=== PATIENT | male | born 1940 | race Caucasian/White ===

== ENCOUNTER 2017-01-29 12:58 | Emergency (ER) | payer MEDICARE ==
--- NOTE | 2017-01-29 13:41 | ER Document Report ---
ED Hip Pain/Injury - General Mode of Arrival: Medic Information source: Patient, Outside Facility Records Cannot obtain history due to: Dementia <VIKAS GUZMÁN - Last Filed: 01/29/17 14:53> <CHERYL GENTILE - Last Filed: 01/30/17 13:00> - General Stated Complaint: WEAKNESS Notes: Unable to obtain complete history of present illness due to patient's history of dementia. The patient is at his baseline dementia according to nursing staff. The patient was sent from the dementia unit after sliding out of his wheelchair to the ground. There was no loss of consciousness. No significant injuries. The patient has no complaints at this time. Further history of present illness is unobtainable due to the patient's current mental status. ( VIKAS GUZMÁN) Past Medical History - Social History Smoking Status: Unknown if Ever Smoked Family History: Reviewed & Not Pertinent <VIKAS GUZMÁN - Last Filed: 01/29/17 14:53> Review of Systems - Review of Systems -: Yes ROS unobtainable due to patient's medical condition <VIKAS GUZMÁN - Last Filed: 01/29/17 14:53> Physical Exam - General General appearance: Appears well, Alert - HEENT Head: Normocephalic Eyes: Normal Ears: Normal Pharynx: Normal Neck: Normal - Respiratory Respiratory status: No respiratory distress Breath sounds: Normal - Cardiovascular Rhythm: Regular Murmur: No - Abdominal Inspection: Normal Distension: No distension Tenderness: Nontender Organomegaly: No organomegaly - Back Back: Normal, Nontender - Extremities General upper extremity: Normal inspection, Nontender, Normal color, Normal ROM , Normal temperature General lower extremity: Normal inspection, Nontender, Normal color, Normal ROM , Normal temperature, Normal weight bearing. No: Herimnia's sign - Neurological Neuro grossly intact: Yes Cognition: Confused - History of dementia Speech: Normal Cranial nerves: Normal Motor strength normal: LUE, RUE, LLE, RLE - Psychological Associated symptoms: Normal affect, Normal mood - Skin Skin Temperature: Warm Skin Moisture: Dry Skin Color: Normal <VIKAS GUZMÁN - Last Filed: 01/29/17 14:53> <CHERYL GENTILE - Last Filed: 01/30/17 13:00> - Vital signs Vitals: Temp Pulse BP Pulse Ox 98.2 F 72 133/75 H 95 01/29/17 13:50 01/29/17 13:50 01/29/17 13:50 01/29/17 13:50 - General Notes: Confused, friendly, baseline (VIKAS GUZMÁN) Course - Diagnostic Test Radiology reviewed: Image reviewed, Reports reviewed - Negative hips <VIKAS GUZMÁN - Last Filed: 01/29/17 14:53> <CHERYL GENTILE - Last Filed: 01/30/17 13:00> - Vital Signs Vital signs: Temp Pulse Resp BP Pulse Ox 98.1 F 79 16 132/76 H 98 01/29/17 18:09 01/29/17 18:09 01/29/17 18:09 01/29/17 18:09 01/29/17 18:09 Patient is nontoxic appearing with stable vitals. The patient arrives after sliding out of his wheelchair to the ground. The patient has dementia and has no recollection of this injury. He has initially no complaints at this time. His exam is completely benign. X-rays of his hip and pelvis show no acute abnormality. The patient will be discharged back to his halfway. Follow- up for any other complaints or further concerns. 01/29/17 14:54 (VIKAS GUZMÁN) Discharge <VIKAS GUZMÁN - Last Filed: 01/29/17 14:53> <CHERYL GENTILE - Last Filed: 01/30/17 13:00> - Discharge Clinical Impression: Fall Qualifiers: Encounter type: initial encounter Qualified Code(s): W19.XXXA - Unspecified fall, initial encounter Disposition: HOME-SNF (ED ONLY) Additional Instructions: X-rays of the pelvis were normal today. Follow-up for any complaints, fever, change in mentation or any further concerns. Cosign for MLP Consult - Cosign -: I was personally available for consultation in the Emergency Department and serving as supervising physician for the MLP. Cosign for MLP: Manfred <CHERYL GENTILE - Last Filed: 01/30/17 13:00>
[2017-01-29 19:03] VITALS: BP 133/75
== END 2017-01-29 18:40 ==
LOC: ER 12:58
DX: Z04.3 Encounter for examination and observation following other accident (principal); F03.90 Unspecified dementia, unspecified severity, without behavioral disturbance, psychotic disturbance, mood disturbance, and anxiety
CPT/HCPCS: 73522; 99285

== ENCOUNTER 2017-02-15 23:30 | Emergency (ER) | payer MEDICARE ==
--- NOTE | 2017-02-15 23:55 | ER Document Report ---
ED General - General Chief Complaint: Low Blood Sugar Stated Complaint: BLOOD SUGAR CONCERNS Time seen by provider: 23:45 Notes: Patient is a 77-year-old male that comes emergency department from the [facility] by EMS for chief complaint of elevated blood glucose readings in the 400s and 500s today. They also state patient has been having a fever, they do not give him numbers for this, EMS initial temperature was 99.4. Patient is nonverbal at baseline, no cough, vomiting, diarrhea, or other abnormalities reported. No other history given at this time. Past Medical History - General Information source: Emergency Med Personnel - Social History Smoking Status: Never Smoker Frequency of alcohol use: None Drug Abuse: None Lives with: Custodial Family History: Reviewed & Not Pertinent - Past Medical History Cardiac Medical History: Reports: Hx Hypercholesterolemia Endocrine Medical History: Reports: Hx Diabetes Mellitus Type 2 - Immunizations Hx Diphtheria, Pertussis, Tetanus Vaccination: - unable to obtain Review of Systems - Review of Systems Constitutional: See HPI EENT: No symptoms reported Cardiovascular: See HPI Respiratory: No symptoms reported Gastrointestinal: No symptoms reported Genitourinary: No symptoms reported Male Genitourinary: No symptoms reported Musculoskeletal: No symptoms reported Skin: No symptoms reported Hematologic/Lymphatic: No symptoms reported Neurological/Psychological: No symptoms reported Physical Exam - Vital signs Vitals: Temp Pulse Resp BP Pulse Ox 98.1 F 72 16 113/50 L 95 02/15/17 23:43 02/15/17 23:43 02/15/17 23:43 02/15/17 23:43 02/15/17 23:43 Interpretation: Normal - General General appearance: Appears well, Alert In distress: None - Patient resting and appears to be comfortable - HEENT Head: Normocephalic, Atraumatic Eyes: Normal Conjunctiva: Normal Extraocular movements intact: Yes Eyelashes: Normal Pupils: PERRL Mouth/Lips: Normal Mucous membranes: Dry - Very dry tongue and lips Pharynx: Normal Neck: Normal - Respiratory Respiratory status: No respiratory distress Chest status: Nontender Breath sounds: Normal. No: Decreased air movement, Wheezing Chest palpation: Normal - Cardiovascular Rhythm: Regular. No: Tachycardia Heart sounds: Normal auscultation, S1 appreciated, S2 appreciated Murmur: No - Abdominal Inspection: Normal Distension: No distension Bowel sounds: Normal Tenderness: Nontender. No: Tender, Guarding Organomegaly: No organomegaly - Back Back: Normal, Nontender - Extremities General upper extremity: Normal inspection, Nontender, Normal color, Normal ROM , Normal temperature General lower extremity: Normal inspection, Nontender, Normal color, Normal ROM , Normal temperature, Normal weight bearing. No: Herminia's sign - Neurological [place] Coma Scale Eye Opening: Spontaneous [place] Coma Scale Motor: Obeys Commands Motor strength normal: LUE, RUE, LLE, RLE Sensory: Normal - Skin Skin Temperature: Warm Skin Moisture: Dry Skin Color: Normal Course - Re-evaluation Re-evalutation: Patient with a soft abdomen, he will follow directions but is nonverbal. Clear lungs, no cough, no tachypnea, he appears to be comfortable. No tachycardia, hypotension, or fever on rechecks. No leukocytosis, chest x-ray and urinalysis are unremarkable. No evidence of infection, no reported recorded fevers. Blood cultures pending. Unsure patient's kidney status, creatinine is 1.6. Urinalysis shows elevated specific gravity and ketones consistent with dehydration. Glucose in the 300s, bicarbonate and anion gap are normal, venous blood gas is normal, no evidence or concern for acidosis. Patient given IV fluids, on reevaluation there is still hyperglycemia, patient given insulin, after downtrending his glucose [facility] having been re[facility]. Patient is already on sliding insulin scale and by mouth meds for diabetes. - Vital Signs Vital signs: Temp Pulse Resp BP Pulse Ox 97.7 F 72 13 115/52 L 97 02/16/17 05:29 02/15/17 23:43 02/16/17 04:01 02/16/17 04:01 02/16/17 04:01 - Laboratory Result Diagrams: 02/16/17 00:29 02/16/17 00:29 Laboratory results interpreted by me: 02/16/17 02/16/17 02/16/17 00:29 00:29 01:50 RBC 3.77 L Hgb 12.5 L Hct 36.7 L RDW 14.1 H Plt Count 113 L Sodium 151.3 H Chloride 111 H BUN 45 H Creatinine 1.67 H Est GFR ( Amer) 48 L Est GFR (Non-Af Amer) 40 L Glucose 355 H POC Glucose Total Protein 5.7 L Albumin 3.4 L Urine Glucose (UA) >=500 H Urine Ketones 20 H Urine Blood SMALL H 02/16/17 02/16/17 04:31 05:59 RBC Hgb Hct RDW Plt Count Sodium Chloride BUN Creatinine Est GFR ( Amer) Est GFR (Non-Af Amer) Glucose POC Glucose 370 H 327 H Total Protein Albumin Urine Glucose (UA) Urine Ketones Urine Blood Discharge - Discharge Clinical Impression: Hyperglycemia, Dehydration Additional Instructions: No evidence of infection on examination and workup. No fevers. Workup does not show metabolic acidosis. Patient has been treated for dehydration. Continue sliding scale and diabetic medications. Follow-up with primary care. Return the emergency department for any concerning symptoms including fever of 100.4 or greater, vomiting, altered mental status, or any other concerning symptoms.
[2017-02-16 01:09] LABS: ABSOLUTE LYMPHOCYTES (AUTO) 1.1 10^3/uL (0.5-4.7); ABSOLUTE MONOCYTES (AUTO) 0.4 10^3/uL (0.1-1.4); ABSOLUTE NEUT (AUTO) 2.9 10^3/uL (1.7-8.2); BASOPHILS % (AUTO) 0.4 % (0-2); EOSINOPHILS % (AUTO) 0.2 % (0-6); HEMATOCRIT 36.7 % (37.9-51.0); HEMOGLOBIN 12.5 g/dL (13.5-17.0); HGB HCT DIFFERENCE 0.8; LYMPHOCYTES % (AUTO) 24.1 % (13-45); MEAN CORPUSCULAR HEMOGLOBIN 33.3 pg (27.0-33.4); MEAN CORPUSCULAR HGB CONC 34.2 g/dL (32.0-36.0); MEAN CORPUSCULAR VOLUME 97 fl (80-97); MONOCYTES % (AUTO) 9.4 % (3-13); RED BLOOD COUNT 3.77 10^6/uL (4.35-5.55); RED CELL DISTRIBUTION WIDTH 14.1 % (11.5-14.0); SEGMENTED NEUTROPHILS % (AUTO) 65.9 % (42-78); WHITE BLOOD COUNT 4.4 10^3/uL (4.0-10.5)
[2017-02-16 01:29] LABS: ALANINE AMINOTRANSFERASE 30 U/L (21-72); ALBUMIN 3.4 g/dL (3.5-5.0); ALKALINE PHOSPHATASE 96 U/L (38-126); ANION GAP 13 (5-19); ASPARTATE AMINO TRANSFERASE 30 U/L (17-59); BILIRUBIN,DIRECT 0.3 mg/dL (0.0-0.4); BILIRUBIN,TOTAL 0.7 mg/dL (0.2-1.3); BLOOD UREA NITROGEN 45 mg/dL (7-20); CALCIUM 9.6 mg/dL (8.4-10.2); CARBON DIOXIDE 27 mmol/L (22-30); CHLORIDE 111 mmol/L (98-107); CREATININE RESULT 1.67 mg/dL (0.52-1.25); GLUCOSE 355 mg/dL (75-110); SODIUM 151.3 mmol/L (137-145); TOTAL PROTEIN 5.7 g/dL (6.3-8.2)
[2017-02-16 02:06] LABS: VENOUS BLOOD BASE EXCESS 2.1 mmol/L; VENOUS BLOOD HCO3 27.9 mmol/L (20-32); VENOUS BLOOD PCO2 48.2 mmHg (35-63); VENOUS BLOOD PH 7.38 (7.30-7.42)
[2017-02-16 02:17] LABS: APPEARANCE,URINE CLEAR; BILIRUBIN,URINE NEGATIVE (NEGATIVE); GLUCOSE, URINE >=500 mg/dL (NEGATIVE); KETONES,URINE 20 mg/dL (NEGATIVE); LEUKOCYTE ESTERASE,URINE NEGATIVE (NEGATIVE); NITRITE,URINE NEGATIVE (NEGATIVE); PROTEIN,URINE NEGATIVE (NEGATIVE); URINE SPECIFIC GRAVITY 1.032; UROBILINOGEN,URINE NEGATIVE mg/dL (<2.0)
[2017-02-16] MEDS ORDERED: NORMAL SALINE 1000 ML 1,000 ML IV ONE (02:24)
[2017-02-16] MEDS ORDERED: NORMAL SALINE 1000 ML 500 ML IV ONE (02:25)
[2017-02-16] MEDS ORDERED: INSULIN REG, HUMAN 100 UNIT/ML 3 ML VIAL (PYX) SUBCUT ONE (04:32)
[2017-02-16 08:32] VITALS: BP 103/55
== END 2017-02-16 08:33 | disposition home health service (06) ==
LOC: ER 23:30
DX: E11.65 Type 2 diabetes mellitus with hyperglycemia (principal); Z79.84 Long term (current) use of oral hypoglycemic drugs; Z79.4 Long term (current) use of insulin; E86.0 Dehydration
CPT/HCPCS: 99285; 96360; 96361; 51701; 36415; 87040; 82962; 85025; 80053; 81001; 82803; 71010; A9270; J7030; J1815

== ENCOUNTER 2017-03-02 13:58 | Emergency (ER) | payer MEDICARE ==
--- NOTE | 2017-03-02 14:15 | ER Document Report ---
ED General - General Chief Complaint: Fever Stated Complaint: WEAKNESS Mode of Arrival: Medic Information source: Relative, Emergency Med Personnel, Outside Facility Records Cannot obtain history due to: Dementia TRAVEL OUTSIDE OF THE [place] IN LAST 30 DAYS: No - HPI Onset: This morning - ABOUT NOON Onset/Duration: Gradual Quality of pain: No pain Associated symptoms: Weakness. denies: Nonproductive cough, Vomiting, Sweating Exacerbated by: Denies Relieved by: Denies Similar symptoms previously: No - UNKNOWN Recently seen / treated by doctor: No - UNKNOWN Notes: Spouse says patient had a "fever" of 99 at [facility], was given Tylenol. - Related Data Allergies/Adverse Reactions: No Known Allergies Allergy (Verified 03/02/17 14:19) Past Medical History - General Information source: Transfer Record - Social History Smoking Status: Unknown if Ever Smoked Lives with: Family Family History: Reviewed & Not Pertinent - Past Medical History Cardiac Medical History: Reports: Hx Hypercholesterolemia Endocrine Medical History: Reports: Hx Diabetes Mellitus Type 1, Hx Diabetes Mellitus Type 2 - Immunizations Hx Diphtheria, Pertussis, Tetanus Vaccination: - unable to obtain Review of Systems - Review of Systems -: Yes ROS unobtainable due to patient's medical condition Physical Exam - Vital signs Vitals: Temp Pulse Resp BP Pulse Ox 98.2 F 76 18 112/47 L 95 03/02/17 14:00 03/02/17 14:00 03/02/17 14:00 03/02/17 14:00 03/02/17 14:00 Interpretation: Normal. No: Tachycardic, Hypoxic, Tachypneic, Febrile - General General appearance: Lethargic - RESPONDS TO SHOUTED VOICE BY OPENING EYES BRIEFLY - HEENT Head: Normocephalic Eyes: Normal Conjunctiva: Normal Pupils: PERRL Ears: Normal Nasal: Normal Mouth/Lips: Normal Mucous membranes: Normal Neck: Normal, Supple - Respiratory Respiratory status: No respiratory distress Breath sounds: Normal - Cardiovascular Rhythm: Regular Heart sounds: Normal auscultation Murmur: No - Abdominal Inspection: Normal Distension: No distension Bowel sounds: Hypoactive - Extremities General upper extremity: Normal inspection General lower extremity: Normal inspection - Neurological Neuro grossly intact: No - UNCOOPERATIVE - Skin Skin Temperature: Warm Skin Moisture: Dry Skin Color: Normal Skin Turgor: Elastic Course - Re-evaluation Re-evalutation: 03/02/17 19:08 Discussed patient's presentation and results of ED workup with patient's spouse. She is able to provide little additional history. Diagnosis, prognosis , and planned course of treatment discussed with spouse, and she verbalizes understanding. - Vital Signs Vital signs: Temp Pulse Resp BP Pulse Ox 98.4 F 90 16 110/70 90 L 03/02/17 20:12 03/02/17 20:52 03/02/17 20:52 03/02/17 20:52 03/02/17 20:52 - Laboratory Result Diagrams: 03/02/17 16:20 03/02/17 16:20 Laboratory results interpreted by me: 03/02/17 03/02/17 03/02/17 16:20 16:20 16:55 RBC 4.25 L MCV 98 H RDW 14.8 H Plt Count 106 L Sodium 149.8 H Carbon Dioxide 31 H BUN 25 H Glucose 123 H Urine Protein 100 H Urine Glucose (UA) 150 H Urine Ketones TRACE H Urine Blood SMALL H Urine Urobilinogen 4.0 H Discharge - Discharge Clinical Impression: Viral illness, Dehydration Condition: Stable Disposition: HOME-ASSISTED LIVING Instructions: Viral Syndrome ([facility]), Acetaminophen Additional Instructions: CONTINUE USUAL CARE, DIET, AND MEDS. YOU MAY USE TYLENOL IF NEEDED FOR FEVER OR PAIN CONTROL. FOLLOW UP WITH YOUR PRIMARY CARE PROVIDER OR RETURN TO E.R. IF PROBLEMS.
[2017-03-02 16:41] LABS: ABSOLUTE LYMPHOCYTES (AUTO) 0.9 10^3/uL (0.5-4.7); ABSOLUTE MONOCYTES (AUTO) 0.5 10^3/uL (0.1-1.4); ABSOLUTE NEUT (AUTO) 3.1 10^3/uL (1.7-8.2); BASOPHILS % (AUTO) 0.5 % (0-2); EOSINOPHILS % (AUTO) 0.4 % (0-6); HEMATOCRIT 41.5 % (37.9-51.0); HEMOGLOBIN 13.7 g/dL (13.5-17.0); HGB HCT DIFFERENCE -0.4; LYMPHOCYTES % (AUTO) 20.6 % (13-45); MEAN CORPUSCULAR HEMOGLOBIN 32.3 pg (27.0-33.4); MEAN CORPUSCULAR HGB CONC 33.1 g/dL (32.0-36.0); MEAN CORPUSCULAR VOLUME 98 fl (80-97); MONOCYTES % (AUTO) 10.6 % (3-13); RED BLOOD COUNT 4.25 10^6/uL (4.35-5.55); RED CELL DISTRIBUTION WIDTH 14.8 % (11.5-14.0); SEGMENTED NEUTROPHILS % (AUTO) 67.9 % (42-78); WHITE BLOOD COUNT 4.6 10^3/uL (4.0-10.5)
[2017-03-02 17:07] LABS: ALBUMIN 3.7 g/dL (3.5-5.0); ANION GAP 13 (5-19); ASPARTATE AMINO TRANSFERASE 33 U/L (17-59); BLOOD UREA NITROGEN 25 mg/dL (7-20); CALCIUM 9.5 mg/dL (8.4-10.2); CARBON DIOXIDE 31 mmol/L (22-30); CHLORIDE 106 mmol/L (98-107); CREATININE RESULT 1.08 mg/dL (0.52-1.25); GLUCOSE 123 mg/dL (75-110); POTASSIUM 3.6 mmol/L (3.6-5.0); SODIUM 149.8 mmol/L (137-145)
[2017-03-02 17:08] LABS: ALANINE AMINOTRANSFERASE 34 U/L (21-72); ALKALINE PHOSPHATASE 108 U/L (38-126); BILIRUBIN,DIRECT 0.3 mg/dL (0.0-0.4); BILIRUBIN,TOTAL 0.8 mg/dL (0.2-1.3); TOTAL PROTEIN 6.5 g/dL (6.3-8.2)
[2017-03-02 17:16] LABS: APPEARANCE,URINE SLIGHTLY-CLOUDY; BILIRUBIN,URINE NEGATIVE (NEGATIVE); GLUCOSE, URINE 150 mg/dL (NEGATIVE); KETONES,URINE TRACE mg/dL (NEGATIVE); LEUKOCYTE ESTERASE,URINE NEGATIVE (NEGATIVE); NITRITE,URINE NEGATIVE (NEGATIVE); PROTEIN,URINE 100 mg/dL (NEGATIVE)
[2017-03-02] MEDS ORDERED: NORMAL SALINE 1000 ML 1,000 ML IV ONE (17:47)
[2017-03-02 18:28] LABS: URINE BARBITURATES SCREEN NEGATIVE; URINE METHADONE SCREEN NEGATIVE; URINE OPIATES LOW NEGATIVE; URINE PHENCYCLIDINE SCREEN NEGATIVE
[2017-03-02 20:54] VITALS: BP 110/70
== END 2017-03-02 20:50 | disposition home health service (06) ==
LOC: ER 13:58
DX: E86.0 Dehydration (principal); B34.9 Viral infection, unspecified; R50.9 Fever, unspecified; R53.1 Weakness; E78.00 Pure hypercholesterolemia, unspecified; E11.9 Type 2 diabetes mellitus without complications
CPT/HCPCS: 99285; 96360; 36415; 87040; 85025; 80053; 81001; 80307; 71010; 70450; J7030

== ENCOUNTER 2017-03-26 06:07 | Inpatient (IN) | payer MEDICARE ==
--- NOTE | 2017-03-26 06:33 | ER Document Report ---
ED General - General Mode of Arrival: Medic Information source: Emergency Med Personnel, [facility] Records Cannot obtain history due to: Dementia TRAVEL OUTSIDE OF THE [place] IN LAST 30 DAYS: No - HPI Patient complains to provider of: Possible Seizure Onset: This morning Associated symptoms: Other - see notes above <SILVIA JAVED - Last Filed: 03/26/17 11:21> <YANNICK YARBROUGH - Last Filed: 03/26/17 13:54> - General Chief Complaint: Probable Seizure Stated Complaint: PROBABLE SEIZURE Time Seen by Provider: 03/26/17 06:25 Notes: 77 year old male with history of Alzheimer's presents to the ED via EMS after having a possible seizure while eating at [facility] earlier this morning. EMS reports the patient's blood pressure was in the low 60s/30s. A comprehensive HPI is unobtainable secondary to the patient's status. (SILVIA JAVED) - Related Data Allergies/Adverse Reactions: No Known Allergies Allergy (Verified 03/02/17 14:19) Home Medications: Current Home Medications Acetaminophen [Tylenol 325 mg Tablet] 650 mg PO Q4HP PRN 03/26/17 [History] Acetaminophen [Tylenol 325 mg Tablet] 650 mg PO Q6HP PRN 03/26/17 [History] Aspirin [Ecotrin 325 mg EC Tablet] 325 mg PO DAILY 03/26/17 [History] Cold Cream/Zinc Oxide/Star/Soren [Dermacloud Ointment] 1 applic TP PRN PRN [History] Divalproex Sodium [Divalproex Sodium ER] 500 mg PO Q12 03/26/17 [History] Glimepiride [Amaryl 4 mg Tablet] 4 mg PO Q6AM 03/26/17 [History] Guaifenesin [Robafen] 200 mg PO Q4HP PRN 03/26/17 [History] Insulin Glargine,Hum.rec.anlog [Lantus Insulin 100 Unit/mL] 25 unit SQ QHS 03/26 [History] Insulin Lispro [Humalog Kwikpen U-100] 0 unit SQ ASDIR PRN 03/26/17 [History] Losartan Potassium [Cozaar 50 mg Tablet] 50 mg PO DAILY 03/26/17 [History] Magnesium Hydroxide [Milk of Magnesia] 30 ml PO DAILYP PRN 03/26/17 [History] Mirtazapine [Remeron] 30 mg PO QHS 03/26/17 [History] Multivitamin/Iron/Folic Acid [Centrum Complete Multivit Tab] 1 tab PO DAILY [History] Neomycin Perez/Bacitrac Zn/Poly [Triple Antibiotic Ointment] 1 applic TP PRN PRN [History] Pioglitazone HCl [Actos] 45 mg PO DAILY 03/26/17 [History] Polyethylene Glycol 3350 [Miralax Powder 17 gm/Packet] 17 gm PO DAILYP PRN 03/26 [History] Sertraline HCl [Zoloft 50 mg Tablet] 50 mg PO DAILY 03/26/17 [History] Trazodone HCl [Desyrel 50 mg Tablet] 50 mg PO QHS 03/26/17 [History] Past Medical History - General Information source: Emergency Med Personnel, [facility] Records Cannot obtain history due to: Dementia - Social History Smoking Status: Unknown if Ever Smoked Family History: Reviewed & Not Pertinent - Past Medical History Cardiac Medical History: Reports: Hx Hypercholesterolemia Neurological Medical History: Reports: Other - Alzheimer's Endocrine Medical History: Reports: Hx Diabetes Mellitus Type 1, Hx Diabetes Mellitus Type 2 Renal/ Medical History: Denies: Hx Peritoneal Dialysis Psychiatric Medical History: Reports: Hx Dementia - Immunizations Hx Diphtheria, Pertussis, Tetanus Vaccination: - unable to obtain <SILVIA JAEVD - Last Filed: 03/26/17 11:21> Review of Systems - Review of Systems -: Yes ROS unobtainable due to patient's medical condition <SILVIA JAVED - Last Filed: 03/26/17 11:21> Physical Exam - General General appearance: Alert - eyes are open In distress: None - HEENT Head: Normocephalic, Atraumatic Eyes: Normal Extraocular movements intact: Yes Pupils: PERRL - Respiratory Respiratory status: No respiratory distress Breath sounds: Normal - Cardiovascular Rhythm: Regular Heart sounds: Normal auscultation - Abdominal Inspection: Normal Distension: No distension Tenderness: Nontender - Back Back: Normal - Extremities General upper extremity: Normal inspection, Normal ROM General lower extremity: Normal inspection, Normal ROM - Neurological Neuro grossly intact: Yes Cognition: Normal Orientation: AAOx4 [place] Coma Scale Eye Opening: Spontaneous Vandana Coma Scale Verbal: Oriented [place] Coma Scale Motor: Obeys Commands [place] Coma Scale Total: 15 Speech: Normal - Skin Skin Temperature: Warm Skin Moisture: Dry Skin Color: Normal <SILVIA JAVED - Last Filed: 03/26/17 11:21> <YANNICK YARBROUGH - Last Filed: 03/26/17 13:54> - Vital signs Vitals: Resp Pulse Ox 16 93 03/26/17 06:16 03/26/17 06:16 Course - Laboratory Result Diagrams: 03/26/17 06:25 03/26/17 06:25 - Consults Dr. Arellano Time consulted: 10:50 <SILVIA JAVED - Last Filed: 03/26/17 11:21> - Laboratory Result Diagrams: 03/26/17 06:25 03/26/17 06:25 <YANNICK YARBROUGH - Last Filed: 03/26/17 13:54> - Re-evaluation Re-evalutation: 03/26/17 10:53 EMS [facility] to [facility] for seizure versus questionable syncopal event at breakfast this morning patient unable to give a history due to severe dementia. Uncertain as to whether he thought he aspirated. Blood pressure obtained by EMS was initially in the 60s on ED arrival he is in the 100s and 1 teens. He was alert and follows commands but noncommunicable. His lungs are clear he is in no severe respiratory distress. He has does have pneumonia on the chest x-ray and a large urinary tract infection for which I gave him thank and Zosyn. Spoke with the inpatient hospitalist is to admit the patient to the hospital for further assessment. (YANNICK YARBROUGH) - Vital Signs Vital signs: Temp Pulse Resp BP Pulse Ox 97.6 F 100 22 H 107/72 90 L 03/26/17 13:33 03/26/17 12:25 03/26/17 12:53 03/26/17 11:15 03/26/17 12:54 - Laboratory Laboratory results interpreted by me: 03/26/17 03/26/17 03/26/17 06:25 06:25 08:45 RBC 3.74 L Hgb 12.4 L Hct 36.8 L MCV 98 H RDW 14.8 H Metamyelocytes % 1 H BUN 23 H Creatinine 1.26 H Est GFR (Non-Af Amer) 55 L Glucose 146 H Total Protein 5.4 L Albumin 3.2 L Urine Protein 100 H Urine Glucose (UA) 50 H Urine Blood MODERATE H Ur Leukocyte Esterase LARGE H Urine Ascorbic Acid 20 H Valproic Acid 28.1 L - Consults Dr. Arellano Reason for consultation: 03/26/17 10:50 Patient was discussed with Dr. Arellano and he agrees to admit the patient and see him at bedside. (SILVIA JAVED) Critical Care Note - Critical Care Note Total time excluding time spent on procedures (mins): 45 <YANNICK YARBROUGH - Last Filed: 03/26/17 13:54> Discharge <SILVIA JAVED - Last Filed: 03/26/17 11:21> - Discharge Admitting Provider: Hospitalist Unit Admitted: Medical Floor <YANNICK YARBROUGH - Last Filed: 03/26/17 13:54> - Discharge Clinical Impression: acute pneumonia with hypoxia, acute uti Condition: Stable Disposition: ADMITTED INPATIENT Scribe Attestation: 03/26/17 10:54 I personally performed the services described in the documentation reviewed the documentation recorded by my scribe in my presence and it accurately and completely records my words and actions (YANNICK YARBROUGH) Scribe Documentation - Scribe Written by Scribe:: Dru Colindres, 03/26/2017 0731 acting as scribe for :: Florencio <SILVIA JAVED - Last Filed: 03/26/17 11:21>
[2017-03-26 06:54] LABS: ALANINE AMINOTRANSFERASE 39 U/L (21-72); ALBUMIN 3.2 g/dL (3.5-5.0); ALKALINE PHOSPHATASE 70 U/L (38-126); ANION GAP 12 (5-19); ASPARTATE AMINO TRANSFERASE 26 U/L (17-59); BILIRUBIN,DIRECT 0.1 mg/dL (0.0-0.4); BILIRUBIN,TOTAL 0.4 mg/dL (0.2-1.3); BLOOD UREA NITROGEN 23 mg/dL (7-20); CALCIUM 9.1 mg/dL (8.4-10.2); CARBON DIOXIDE 27 mmol/L (22-30); CHLORIDE 104 mmol/L (98-107); CREATININE RESULT 1.26 mg/dL (0.52-1.25); GLUCOSE 146 mg/dL (75-110); POTASSIUM 4.6 mmol/L (3.6-5.0); SODIUM 143.1 mmol/L (137-145); TOTAL PROTEIN 5.4 g/dL (6.3-8.2)
[2017-03-26 07:00] LABS: VALPROIC ACID 28.1 ug/mL (50.0-120.0)
[2017-03-26 07:04] LABS: HEMATOCRIT 36.8 % (37.9-51.0); HEMOGLOBIN 12.4 g/dL (13.5-17.0); HGB HCT DIFFERENCE 0.4; MEAN CORPUSCULAR HEMOGLOBIN 33.2 pg (27.0-33.4); MEAN CORPUSCULAR HGB CONC 33.7 g/dL (32.0-36.0); MEAN CORPUSCULAR VOLUME 98 fl (80-97); RED BLOOD COUNT 3.74 10^6/uL (4.35-5.55); RED CELL DISTRIBUTION WIDTH 14.8 % (11.5-14.0); WHITE BLOOD COUNT 4.9 10^3/uL (4.0-10.5)
[2017-03-26 07:20] LABS: BAND NEUTROPHILS % (MANUAL) 3 % (3-5); BASOPHILS % (MANUAL) 0 % (0-2); EOSINOPHILS % (MANUAL) 0 % (0-6); LYMPHOCYTES % (MANUAL) 30 % (13-45); TOTAL CELLS COUNTED 100
[2017-03-26 07:24] LABS: ANISOCYTOSIS SLIGHT; OVALOCYTES SLIGHT; POIKILOCYTOSIS SLIGHT
--- NOTE | 2017-03-26 08:37 | RADIOLOGY REPORT (SQ) ---
EXAM DESCRIPTION: CHEST SINGLE VIEW COMPLETED DATE/TIME: 03/26/2017 8:28 am REASON FOR STUDY: seizure syncope COMPARISON: 03/02/2017 EXAM PARAMETERS: NUMBER OF VIEWS: One view. TECHNIQUE: Single frontal radiographic view of the chest acquired. RADIATION DOSE: NA LIMITATIONS: None. FINDINGS: LUNGS AND PLEURA: New right lower lobe airspace disease. Lungs and pleural spaces otherwi se grossly clear. MEDIASTINUM AND HILAR STRUCTURES: No masses. Contour normal. HEART AND VASCULAR STRUCTURES: Heart stable in size. Normal vasculature. BONES: No acute findings. HARDWARE: None in the chest. OTHER: No other significant finding. IMPRESSION: NEW RIGHT LOWER LOBE AIRSPACE DISEASE MAY REPRESENT SUBSEGMENTAL ATELECTASIS, ASPIRATION , OR DEVELOPING PNEUMONIA. TECHNICAL DOCUMENTATION: JOB ID: [id number]
--- NOTE | 2017-03-26 08:37 | RADIOLOGY REPORT (SQ) ---
EXAM DESCRIPTION: CT HEAD WITHOUT COMPLETED DATE/TIME: 03/26/2017 8:25 am REASON FOR STUDY: seizure syncope COMPARISON: 03/02/2017 TECHNIQUE: Axial images acquired through the brain without intravenous contrast. Images reviewed wi th bone, brain and subdural windows. Images stored on PACS. All CT scanners at this facility use dose modulation, iterative reconstruction, and/or weight based d osing when appropriate to reduce radiation dose to as low as reasonably achievable (ALARA). [facility]: Dose Right [facility]: CareDose [facility]: Dose Right [facility]: Teradose 4D [facility]: Adify RADIATION DOSE: 64.61mGy. LIMITATIONS: None. FINDINGS: VENTRICLES: Prominent. CEREBRUM: No masses. No hemorrhage. No midline shift. Areas of low density in the white matter mos t likely due to chronic micro-vascular ischemic change. No evidence for acute infarction. CEREBELLUM: No masses. No hemorrhage. No alteration of density. No evidence for acute infarction. EXTRAAXIAL SPACES: Age-related involutional change. No fluid collections. No masses. ORBITS AND GLOBE: No intra- or extraconal masses. Normal contour of globe without masses. CALVARIUM: No fracture. PARANASAL SINUSES: Right frontal sinus disease. Tiny mucous retention cyst versus polyp left maxilla ry sinus. No air-fluid levels. SOFT TISSUES: No mass or hematoma. OTHER: No other significant finding. IMPRESSION: NO ACUTE INTRACRANIAL PROCESS. NO SIGNIFICANT CHANGE FROM PRIOR STUDY. TECHNICAL DOCUMENTATION: JOB ID: [id number] Quality ID # [id number]: Final reports with documentation of one or more dose reduction techniques (e.g., Au tomated exposure control, adjustment of the mA and/or kV according to patient size, use of iterative reconstruction technique) 2010 [employer]- All Rights Reserved
[2017-03-26 09:03] LABS: APPEARANCE,URINE CLOUDY; BILIRUBIN,URINE NEGATIVE (NEGATIVE); GLUCOSE, URINE 50 mg/dL (NEGATIVE); KETONES,URINE NEGATIVE (NEGATIVE); LEUKOCYTE ESTERASE,URINE LARGE (NEGATIVE); NITRITE,URINE NEGATIVE (NEGATIVE); PROTEIN,URINE 100 mg/dL (NEGATIVE); URINE SPECIFIC GRAVITY 1.014; UROBILINOGEN,URINE NEGATIVE mg/dL (<2.0)
[2017-03-26] MEDS ORDERED: PIPERACILLIN/TAZOBACTAM 3.375 GM VIAL IV ONE (10:48)
[2017-03-26] MEDS ORDERED: VANCOMYCIN HCL INJ 1000 MG VIAL IV ONE (10:48)
[2017-03-26] MEDS ORDERED: DIVALPROEX SODIUM 500 MG TAB.SR.24H PO ONE (10:53)
[2017-03-26] MEDS ORDERED: ONDANSETRON HCL INJ/PF 4 MG/2 ML SDV IV PRN (11:15)
[2017-03-26] MEDS ORDERED: ONDANSETRON 4 MG TAB.RAPDIS PO PRN (11:15)
[2017-03-26] MEDS ORDERED: ALBUTEROL SULFATE 0.083% NEB 2.5 MG/3 ML AMPUL NEB PRN (11:15)
[2017-03-26] MEDS ORDERED: ACETAMINOPHEN 325 MG TABLET PO PRN (11:15)
[2017-03-26] MEDS ORDERED: DEXTROSE 40% GEL 15 GM TUBE PO PRN ×2 (11:30)
[2017-03-26] MEDS ORDERED: GLUCAGON,HUMAN RECOMB 1 MG INJ IM PRN (11:30)
[2017-03-26] MEDS ORDERED: INSULIN LISPRO 100 UNIT/ML 3 ML VIAL SUBCUT PRN (11:30)
[2017-03-26] MEDS ORDERED: DEXTROSE 50%-WATER 25 GM/50 ML DISP.SYRIN IV PRN (11:30)
--- NOTE | 2017-03-26 11:43 | PDOC H&P ---
History of Present Illness Admission Date/PCP: March 26, 2017. Primary care is Dr. 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 He was eating breakfast this morning and then became unresponsive according to EMS report of nursing staff there. He then had some questionable tonic-clonic Activity and was brought to the emergency room for further evaluation. Patient was found to have a urinary tract infection as well as a pneumonia. He is unable to give any history. The is at the bedside reports that he was in his usual state of health yesterday. When asked if he ever had seizures previously she was unaware that he had. He is on Depakote, but she reports that was a mood stabilizer given for his agitation related to his dementia. Patient has not had any fevers or chills and is not clear whether he may have aspirated since he was eating when he had this syncopal episode versus a seizure. Past Medical History Cardiac Medical History: Reports: Hyperlipidema, Hypertension Pulmonary Medical History: Reports: None Neurological Medical History: Reports: Other - Lewy body dementia Endocrine Medical History: Reports: Diabetes Mellitus Type 2 Renal/ Medical History: Reports: None Malignancy Medical History: Reports: None GI Medical History: Reports: None Musculoskeltal Medical History: Reports: None Skin Medical History: Reports: None Psychiatric Medical History: Reports: Dementia - Lewy body dementia, Depression Hematology: Reports: None Infectious Medical History: Reports: None Past Surgical History Past Surgical History: Reports: None Social History Information Source: Relative, [facility] Records Lives with: [facility] Smoking Status: Never Smoker Frequency of Alcohol Use: None Hx Recreational Drug Use: No Drugs: None Hx Prescription Drug Abuse: No - Advance Directive Resuscitation Status: Do Not Resuscitate Surrogate healthcare decision maker:: is his decision maker Family History Family History: Mother lived to be in her 90s and had no chronic health problems. Father in his 50s from coronary artery disease. Parental Family History Reviewed: Yes Children Family History Reviewed: No Sibling(s) Family History Reviewed.: No Medication/Allergy Allergies/Adverse Reactions: No Known Allergies Allergy (Verified 03/02/17 14:19) Review of Systems ROS unobtainable: Due to mental status Physical Exam Vital Signs: Temp Pulse Resp BP Pulse Ox 97.4 F 20 107/72 91 L 03/26/17 06:33 03/26/17 11:12 03/26/17 11:08 03/26/17 11:12 General appearance: PRESENT: no acute distress, well-developed, well-nourished Head exam: PRESENT: atraumatic, normocephalic Eye exam: PRESENT: conjunctiva pink, EOMI, PERRLA. ABSENT: scleral icterus Ear exam: PRESENT: normal external ear exam Mouth exam: PRESENT: moist, tongue midline Neck exam: ABSENT: carotid bruit, JVD, lymphadenopathy, thyromegaly Respiratory exam: PRESENT: clear to auscultation anusha. ABSENT: rales, rhonchi, wheezes Cardiovascular exam: PRESENT: RRR. ABSENT: diastolic murmur, rubs, systolic murmur Pulses: PRESENT: normal dorsalis pedis pul Vascular exam: PRESENT: normal capillary refill GI/Abdominal exam: PRESENT: normal bowel sounds, soft. ABSENT: distended, guarding, mass, organolmegaly, rebound, tenderness Rectal exam: PRESENT: deferred Extremities exam: ABSENT: calf tenderness, clubbing, pedal edema Neurological exam: PRESENT: awake, CN II-XII grossly intact. ABSENT: oriented to person, oriented to place, oriented to time, oriented to situation, motor sensory deficit Psychiatric exam: PRESENT: agitated Skin exam: PRESENT: dry, intact, warm. ABSENT: cyanosis, rash Results Laboratory Results: 03/26/17 06:25 03/26/17 06:25 03/26/17 03/26/17 03/26/17 06:25 06:25 08:45 WBC 4.9 RBC 3.74 L Hgb 12.4 L Hct 36.8 L MCV 98 H MCH 33.2 MCHC 33.7 RDW 14.8 H Plt Count 172 Seg Neutrophils % Not Reportable Lymphocytes % Not Reportable Monocytes % Not Reportable Eosinophils % Not Reportable Basophils % Not Reportable Absolute Neutrophils Not Reportable Absolute Lymphocytes Not Reportable Absolute Monocytes Not Reportable Absolute Eosinophils Not Reportable Absolute Basophils Not Reportable Sodium 143.1 Potassium 4.6 Chloride 104 Carbon Dioxide 27 Anion Gap 12 BUN 23 H Creatinine 1.26 H Est GFR ( Amer) > 60 Est GFR (Non-Af Amer) 55 L Glucose 146 H Calcium 9.1 Total Bilirubin 0.4 AST 26 ALT 39 Alkaline Phosphatase 70 Total Protein 5.4 L Albumin 3.2 L Urine Color YELLOW Urine Appearance CLOUDY Urine pH 7.0 Ur Specific [place] 1.014 Urine Protein 100 H Urine Glucose (UA) 50 H Urine Ketones NEGATIVE Urine Blood MODERATE H Urine Nitrite NEGATIVE Ur Leukocyte Esterase LARGE H Urine WBC (Auto) >182 Urine RBC (Auto) 83 03/26/17 06:25 NT-Pro-B Natriuret Pep 178 Impressions: Chest X-Ray 03/26/17 06:32 IMPRESSION: NEW RIGHT LOWER LOBE AIRSPACE DISEASE MAY REPRESENT SUBSEGMENTAL ATELECTASIS, ASPIRATION, OR DEVELOPING PNEUMONIA. Head CT 03/26/17 06:33 IMPRESSION: NO ACUTE INTRACRANIAL PROCESS. NO SIGNIFICANT CHANGE FROM PRIOR STUDY. Assessment & Plan - Diagnosis (1) Syncope Is this a current diagnosis for this admission?: YesPlan: The patient had a syncopal episode while eating breakfast and had a possible tonic-clonic seizure. According to the he has no previous history of seizures. We will check serial neurological exams to make certain he does not have an acute CVA although he is moving all 4 extremities. He does not cooperate for neurological exam. He does have a history of hypertension and is on antihypertensives. He cannot cooperate for orthostatic blood pressures. Will monitor on telemetry to make certain he is not having any type of cardiac arrhythmias. (2) Pneumonia Is this a current diagnosis for this admission?: YesPlan: Patient has pneumonia and this probably is aspiration given his syncopal episode while eating breakfast. Will cover with Rocephin and Zithromax. (3) Urinary tract infection Is this a current diagnosis for this admission?: YesPlan: Should have adequate coverage with the Rocephin for his urinary tract infection. (4) Acute renal failure Is this a current diagnosis for this admission?: YesPlan: His creatinine is elevated. Is not clear whether this is acute or chronic. He has had one previous creatinine that was slightly elevated. Will monitor and see if it decreases. (5) Diabetes mellitus Is this a current diagnosis for this admission?: YesPlan: Continue with the Lantus and sliding scale insulin. Will hold his oral hypoglycemic agents while an inpatient. (6) Hypertension Is this a current diagnosis for this admission?: YesPlan: Has been on losartan and we will continue with that. (7) Depression Is this a current diagnosis for this admission?: YesPlan: On mirtazapine, Zoloft, trazodone as well as Depakote. Will continue with his current regimen for now. (8) Lewy body dementia with behavioral disturbance Is this a current diagnosis for this admission?: YesPlan: According to the he has problems with agitation and takes trazodone at night to help him sleep. He is a DO NOT RESUSCITATE - Time Time Spent: 50 to 70 Minutes - Inpatient Certification Medical Necessity: Need for Neurological Checks, Need for IV Antibiotics - Plan Summary Plan Summary: It is unclear whether the patient had a syncopal episode or had a seizure. We do not have his old records available yet to see if he has a previous history of seizures. His denies him ever having seizures previously however. He has been on Depakote for mood stabilizer by her report.
[2017-03-26] MEDS ORDERED: ENOXAPARIN SODIUM INJ 40 MG/0.4 ML DISP.SYRIN SUBCUT ONE (14:00)
[2017-03-26] MEDS: CEFTRIAXONE 1 GM/D5W RTU 1 GM/50 ML RTUPB IV SCH (17:59)
[2017-03-26] MEDS: DIVALPROEX SODIUM 250 MG TABLET.DR PO SCH (18:00)
[2017-03-26] MEDS ORDERED: HALOPERIDOL LACTATE INJ 5 MG/1 ML VIAL IM ONE (19:00)
[2017-03-26] MEDS ORDERED: DIAZEPAM INJ 10 MG/2 ML DISP.SYRIN IV ONE (20:15)
[2017-03-26] MEDS: MIRTAZAPINE 15 MG TABLET PO SCH (21:06)
[2017-03-26] MEDS: TRAZODONE HCL 50 MG TABLET PO SCH (21:06)
[2017-03-26] MEDS: FAMOTIDINE 20 MG TABLET PO SCH (21:07)
[2017-03-26] MEDS: INSULIN GLARGINE,HUM.REC.ANLOG 300 UNIT/3 ML INSULN.PEN SUBCUT SCH (21:22)
[2017-03-27 05:30] LABS: ABSOLUTE LYMPHOCYTES (AUTO) 0.8 10^3/uL (0.5-4.7); ABSOLUTE MONOCYTES (AUTO) 0.5 10^3/uL (0.1-1.4); BASOPHILS % (AUTO) 0.4 % (0-2); EOSINOPHILS % (AUTO) 0.3 % (0-6); HEMATOCRIT 33.4 % (37.9-51.0); HEMOGLOBIN 11.5 g/dL (13.5-17.0); HGB HCT DIFFERENCE 1.1; LYMPHOCYTES % (AUTO) 14.5 % (13-45); MEAN CORPUSCULAR HEMOGLOBIN 33.5 pg (27.0-33.4); MEAN CORPUSCULAR HGB CONC 34.5 g/dL (32.0-36.0); MEAN CORPUSCULAR VOLUME 97 fl (80-97); MONOCYTES % (AUTO) 10.3 % (3-13); RED BLOOD COUNT 3.43 10^6/uL (4.35-5.55); RED CELL DISTRIBUTION WIDTH 14.1 % (11.5-14.0); SEGMENTED NEUTROPHILS % (AUTO) 74.5 % (42-78); WHITE BLOOD COUNT 5.3 10^3/uL (4.0-10.5)
[2017-03-27 06:03] LABS: ANION GAP 8 (5-19); BLOOD UREA NITROGEN 26 mg/dL (7-20); CALCIUM 9.4 mg/dL (8.4-10.2); CARBON DIOXIDE 28 mmol/L (22-30); CHLORIDE 106 mmol/L (98-107); CREATININE RESULT 1.42 mg/dL (0.52-1.25); GLUCOSE 128 mg/dL (75-110); POTASSIUM 4.2 mmol/L (3.6-5.0); SODIUM 142.1 mmol/L (137-145)
[2017-03-27] MEDS: ENOXAPARIN SODIUM INJ 40 MG/0.4 ML DISP.SYRIN SUBCUT SCH (08:58)
[2017-03-27] MEDS ORDERED: NORMAL SALINE 1000 ML 1,000 ML IV PRN (09:34)
--- NOTE | 2017-03-27 09:41 | PDOC PROGRESS REPORT ---
Subjective Progress Note for:: 03/27/17 Subjective:: Patient reportedly agitated last night and was given Valium. Initially patient is unable to take his medications but after the Valium he was able to take his medications. No reported temperature spikes, nausea or vomiting, chills or fever, nor any seizure activity. Patient seems to be having tremors according to the staff. Physical Exam Vital Signs: Temp Pulse Resp BP Pulse Ox 98.0 F 94 18 100/40 L 93 03/27/17 08:11 03/27/17 07:00 03/27/17 08:11 03/27/17 08:11 03/27/17 08:11 Intake & Output 03/26/17 03/27/17 03/28/17 06:59 06:59 06:59 Intake Total 210 Balance 210 Weight 64.2 kg General appearance: PRESENT: no acute distress, other - Does not verbalize Head exam: PRESENT: normocephalic Mouth exam: PRESENT: dry mucosa, neck supple Neck exam: ABSENT: JVD Respiratory exam: PRESENT: clear to auscultation anusha - But with poor effort. ABSENT: rhonchi, wheezes Cardiovascular exam: PRESENT: RRR. ABSENT: gallop GI/Abdominal exam: PRESENT: hypoactive bowel sounds, soft. ABSENT: distended, tenderness Extremities exam: ABSENT: pedal edema Psychiatric exam: ABSENT: agitated Skin exam: PRESENT: dry, warm. ABSENT: cyanosis Results Laboratory Results: 03/27/17 04:16 03/27/17 04:16 03/27/17 03/27/17 04:16 04:16 WBC 5.3 RBC 3.43 L Hgb 11.5 L Hct 33.4 L MCV 97 MCH 33.5 H MCHC 34.5 RDW 14.1 H Plt Count 142 L Seg Neutrophils % 74.5 Lymphocytes % 14.5 Monocytes % 10.3 Eosinophils % 0.3 Basophils % 0.4 Absolute Neutrophils 4.0 Absolute Lymphocytes 0.8 Absolute Monocytes 0.5 Absolute Eosinophils 0.0 Absolute Basophils 0.0 Sodium 142.1 Potassium 4.2 Chloride 106 Carbon Dioxide 28 Anion Gap 8 BUN 26 H Creatinine 1.42 H Est GFR ( Amer) 58 L Est GFR (Non-Af Amer) 48 L Glucose 128 H Calcium 9.4 Impressions: Chest X-Ray 03/26/17 06:32 IMPRESSION: NEW RIGHT LOWER LOBE AIRSPACE DISEASE MAY REPRESENT SUBSEGMENTAL ATELECTASIS, ASPIRATION, OR DEVELOPING PNEUMONIA. Head CT 03/26/17 06:33 IMPRESSION: NO ACUTE INTRACRANIAL PROCESS. NO SIGNIFICANT CHANGE FROM PRIOR STUDY. Assessment & Plan - Diagnosis (1) Syncope Qualifiers: Syncope type: unspecified Qualified Code(s): R55 - Syncope and collapse Is this a current diagnosis for this admission?: Yes (2) Pneumonia Qualifiers: Pneumonia type: due to unspecified organism Laterality: right Lung location: lower lobe of lung Qualified Code(s): J18.1 - Lobar pneumonia, unspecified organism Is this a current diagnosis for this admission?: Yes (3) Urinary tract infection Qualifiers: Urinary tract infection type: site unspecified Hematuria presence: without hematuria Qualified Code(s): N39.0 - Urinary tract infection, site not specified Is this a current diagnosis for this admission?: Yes (4) Acute renal failure Qualifiers: Acute renal failure type: unspecified Qualified Code(s): N17.9 - Acute kidney failure, unspecified Is this a current diagnosis for this admission?: Yes (5) Depression Qualifiers: Depression Type: unspecified Qualified Code(s): F32.9 - Major depressive disorder, single episode, unspecified Is this a current diagnosis for this admission?: Yes (6) Diabetes mellitus Qualifiers: Diabetes mellitus type: type 2 Diabetes mellitus complication status: with unspecified complications Diabetes mellitus long-term insulin use: with long-term use Qualified Code(s): E11.8 - Type 2 diabetes mellitus with unspecified complications; Z79.4 - [facility] (current) use of insulin Is this a current diagnosis for this admission?: Yes (7) Hypertension Qualifiers: Hypertension type: essential hypertension Qualified Code(s): I10 - Essential (primary) hypertension Is this a current diagnosis for this admission?: Yes (8) Lewy body dementia with behavioral disturbance Is this a current diagnosis for this admission?: Yes (9) Hyperlipidemia Qualifiers: Hyperlipidemia type: unspecified Qualified Code(s): E78.5 - Hyperlipidemia, unspecified Is this a current diagnosis for this admission?: Yes - Time Time Spent with patient: 25-34 minutes - Plan Summary Plan Summary: Discontinue erythromycin. Begin intravenous clindamycin. Begin intravenous fluids. We will hold benzodiazepine at this time. Patient seems to be sedated. No reported seizure episode. We will continue to monitor. Recheck creatinine in the morning.
[2017-03-27] MEDS ORDERED: LOSARTAN POTASSIUM 50 MG TABLET PO SCH (10:00)
[2017-03-27] MEDS ORDERED: AZITHROMYCIN 500 MG in DEXTROSE 5%-WATER 250 ML IV SCH (10:00)
[2017-03-27] MEDS: DIVALPROEX SODIUM 250 MG TABLET.DR PO SCH ×2 (10:03→17:36)
[2017-03-27] MEDS: SERTRALINE HCL 50 MG TABLET PO SCH (10:03)
[2017-03-27] MEDS: ASPIRIN 325 MG TABLET, ENT COATED PO SCH (10:04)
[2017-03-27] MEDS: FAMOTIDINE 20 MG TABLET PO SCH ×2 (10:04→23:11)
[2017-03-27] MEDS: LOSARTAN POTASSIUM 50 MG TABLET PO SCH (10:52)
[2017-03-27] MEDS: CLINDAMYCIN 600 MG/D5W RTU 50 ML IV SCH ×2 (14:48→23:11)
[2017-03-27] MEDS: CEFTRIAXONE 1 GM/D5W RTU 1 GM/50 ML RTUPB IV SCH (17:37)
[2017-03-27] MEDS: MIRTAZAPINE 15 MG TABLET PO SCH (23:11)
[2017-03-27] MEDS: INSULIN GLARGINE,HUM.REC.ANLOG 300 UNIT/3 ML INSULN.PEN SUBCUT SCH (23:12)
[2017-03-27] MEDS: TRAZODONE HCL 50 MG TABLET PO SCH (23:12)
[2017-03-28] MEDS: CLINDAMYCIN 600 MG/D5W RTU 50 ML IV SCH ×3 (05:23→22:17)
[2017-03-28 06:42] LABS: ANION GAP 8 (5-19); BLOOD UREA NITROGEN 22 mg/dL (7-20); CALCIUM 9.1 mg/dL (8.4-10.2); CARBON DIOXIDE 31 mmol/L (22-30); CHLORIDE 106 mmol/L (98-107); CREATININE RESULT 1.21 mg/dL (0.52-1.25); GLUCOSE 54 mg/dL (75-110); POTASSIUM 3.6 mmol/L (3.6-5.0); SODIUM 144.9 mmol/L (137-145)
[2017-03-28] MEDS: ENOXAPARIN SODIUM INJ 40 MG/0.4 ML DISP.SYRIN SUBCUT SCH (08:44)
[2017-03-28] MEDS: FAMOTIDINE 20 MG TABLET PO SCH ×2 (10:34→22:19)
[2017-03-28] MEDS: SERTRALINE HCL 50 MG TABLET PO SCH (10:34)
[2017-03-28] MEDS: ASPIRIN 325 MG TABLET, ENT COATED PO SCH (10:34)
[2017-03-28] MEDS: LOSARTAN POTASSIUM 50 MG TABLET PO SCH (10:35)
[2017-03-28] MEDS: DIVALPROEX SODIUM 250 MG TABLET.DR PO SCH ×2 (10:37→17:14)
--- NOTE | 2017-03-28 11:53 | PDOC PROGRESS REPORT ---
Subjective Progress Note for:: 03/28/17 Subjective:: Patient reportedly without further agitation. More awake and alert this morning. No reported temperature spikes, nausea or vomiting, chills or fever, nor any seizure activity. Patient seems to be having tremors according to the staff. No reported diarrhea. Physical Exam Vital Signs: Temp Pulse Resp BP Pulse Ox 97.7 F 70 16 131/58 H 95 03/28/17 07:12 03/28/17 11:38 03/28/17 11:38 03/28/17 07:12 03/28/17 11:38 Intake & Output 03/27/17 03/28/17 03/29/17 06:59 06:59 06:59 Intake Total 210 650 Balance 210 650 Weight 64.2 kg 63.6 kg General appearance: PRESENT: no acute distress, cooperative Head exam: PRESENT: normocephalic Mouth exam: PRESENT: moist, neck supple Neck exam: ABSENT: JVD Respiratory exam: PRESENT: clear to auscultation anusha - Poor effort however. ABSENT: rhonchi, wheezes Cardiovascular exam: PRESENT: RRR. ABSENT: gallop GI/Abdominal exam: PRESENT: normal bowel sounds, soft. ABSENT: distended, tenderness Extremities exam: ABSENT: pedal edema Skin exam: PRESENT: dry, warm. ABSENT: cyanosis Results Laboratory Results: 03/27/17 04:16 03/28/17 06:09 03/28/17 06:09 Sodium 144.9 Potassium 3.6 Chloride 106 Carbon Dioxide 31 H Anion Gap 8 BUN 22 H Creatinine 1.21 Est GFR ( Amer) > 60 Est GFR (Non-Af Amer) 58 L Glucose 54 L Calcium 9.1 Impressions: Chest X-Ray 03/26/17 06:32 IMPRESSION: NEW RIGHT LOWER LOBE AIRSPACE DISEASE MAY REPRESENT SUBSEGMENTAL ATELECTASIS, ASPIRATION, OR DEVELOPING PNEUMONIA. Head CT 03/26/17 06:33 IMPRESSION: NO ACUTE INTRACRANIAL PROCESS. NO SIGNIFICANT CHANGE FROM PRIOR STUDY. Assessment & Plan - Diagnosis (1) Syncope Qualifiers: Syncope type: unspecified Qualified Code(s): R55 - Syncope and collapse Is this a current diagnosis for this admission?: Yes (2) Pneumonia Qualifiers: Pneumonia type: due to unspecified organism Laterality: right Lung location: lower lobe of lung Qualified Code(s): J18.1 - Lobar pneumonia, unspecified organism Is this a current diagnosis for this admission?: Yes (3) Urinary tract infection Qualifiers: Urinary tract infection type: site unspecified Hematuria presence: without hematuria Qualified Code(s): N39.0 - Urinary tract infection, site not specified Is this a current diagnosis for this admission?: Yes (4) Acute renal failure Qualifiers: Acute renal failure type: unspecified Qualified Code(s): N17.9 - Acute kidney failure, unspecified Is this a current diagnosis for this admission?: Yes (5) Depression Qualifiers: Depression Type: unspecified Qualified Code(s): F32.9 - Major depressive disorder, single episode, unspecified Is this a current diagnosis for this admission?: Yes (6) Diabetes mellitus Qualifiers: Diabetes mellitus type: type 2 Diabetes mellitus complication status: with unspecified complications Diabetes mellitus [facility]cf insulin use: with chcf use Qualified Code(s): E11.8 - Type 2 diabetes mellitus with unspecified complications; Z79.4 - [facility] (current) use of insulin Is this a current diagnosis for this admission?: Yes (7) Hypertension Qualifiers: Hypertension type: essential hypertension Qualified Code(s): I10 - Essential (primary) hypertension Is this a current diagnosis for this admission?: Yes (8) Lewy body dementia with behavioral disturbance Is this a current diagnosis for this admission?: Yes (9) Hyperlipidemia Qualifiers: Hyperlipidemia type: unspecified Qualified Code(s): E78.5 - Hyperlipidemia, unspecified Is this a current diagnosis for this admission?: Yes - Time Time Spent with patient: 25-34 minutes - Plan Summary Plan Summary: Continue gentle hydration. Recheck creatinine in the morning. Begin vancomycin pending identity of the gram-positive cocci on the culture. In the meantime continue antibiotics for aspiration pneumonia. We will decrease the patient's trazodone and Remeron dose.
[2017-03-28] MEDS ORDERED: VANCOMYCIN HCL INJ 1000 MG VIAL IV SCH (12:00)
[2017-03-28] MEDS: VANCOMYCIN HCL 1,250 MG in DEXTROSE 5%-WATER 250 ML IV SCH (16:08)
[2017-03-28] MEDS: CEFTRIAXONE 1 GM/D5W RTU 1 GM/50 ML RTUPB IV SCH (17:14)
[2017-03-28] MEDS: TRAZODONE HCL 50 MG TABLET PO SCH (22:18)
[2017-03-28] MEDS: MIRTAZAPINE 15 MG TABLET PO SCH (22:19)
[2017-03-28] MEDS: INSULIN GLARGINE,HUM.REC.ANLOG 300 UNIT/3 ML INSULN.PEN SUBCUT SCH (22:53)
[2017-03-29] MEDS: CLINDAMYCIN 600 MG/D5W RTU 50 ML IV SCH (05:17)
[2017-03-29 05:29] LABS: ANION GAP 11 (5-19); BLOOD UREA NITROGEN 17 mg/dL (7-20); CALCIUM 9.3 mg/dL (8.4-10.2); CARBON DIOXIDE 30 mmol/L (22-30); CHLORIDE 104 mmol/L (98-107); GLUCOSE 88 mg/dL (75-110); POTASSIUM 3.9 mmol/L (3.6-5.0); SODIUM 144.7 mmol/L (137-145)
[2017-03-29] MEDS: DEXTROSE 50%-WATER 25 GM/50 ML DISP.SYRIN IV PRN ×2 (06:12→22:25)
[2017-03-29] MEDS ORDERED: NORMAL SALINE 1000 ML 1,000 ML IV PRN (09:54)
--- NOTE | 2017-03-29 09:59 | PDOC PROGRESS REPORT ---
Subjective Progress Note for:: 03/29/17 Subjective:: No reported agitation, temperature spikes, diarrhea, nausea or vomiting. Patient with advanced dementia. No respiratory distress reported as well. Oral intake is fair. No aggressive behavior reported as well. Physical Exam Vital Signs: Temp Pulse Resp BP Pulse Ox 97.3 F 61 18 122/56 L 97 03/29/17 07:44 03/29/17 07:44 03/29/17 07:44 03/29/17 07:44 03/29/17 07:44 Intake & Output 03/28/17 03/29/17 03/30/17 06:59 06:59 06:59 Intake Total 650 1030 Balance 650 1030 Weight 63.6 kg 68.5 kg General appearance: PRESENT: no acute distress, well-developed Head exam: PRESENT: normocephalic Eye exam: PRESENT: conjunctiva pink Mouth exam: PRESENT: moist, neck supple Neck exam: ABSENT: JVD Respiratory exam: PRESENT: clear to auscultation anusha. ABSENT: rhonchi, wheezes Cardiovascular exam: PRESENT: RRR. ABSENT: gallop GI/Abdominal exam: PRESENT: hypoactive bowel sounds, soft. ABSENT: distended, tenderness Extremities exam: ABSENT: pedal edema Skin exam: PRESENT: dry, warm. ABSENT: cyanosis Results Laboratory Results: 03/27/17 04:16 03/29/17 04:09 03/29/17 04:09 Sodium 144.7 Potassium 3.9 Chloride 104 Carbon Dioxide 30 Anion Gap 11 BUN 17 Creatinine 1.10 Est GFR ( Amer) > 60 Est GFR (Non-Af Amer) > 60 Glucose 88 Calcium 9.3 Impressions: Chest X-Ray 03/26/17 06:32 IMPRESSION: NEW RIGHT LOWER LOBE AIRSPACE DISEASE MAY REPRESENT SUBSEGMENTAL ATELECTASIS, ASPIRATION, OR DEVELOPING PNEUMONIA. Head CT 03/26/17 06:33 IMPRESSION: NO ACUTE INTRACRANIAL PROCESS. NO SIGNIFICANT CHANGE FROM PRIOR STUDY. Assessment & Plan - Diagnosis (1) Syncope Qualifiers: Syncope type: unspecified Qualified Code(s): R55 - Syncope and collapse Is this a current diagnosis for this admission?: Yes (2) Pneumonia Qualifiers: Pneumonia type: due to unspecified organism Laterality: right Lung location: lower lobe of lung Qualified Code(s): J18.1 - Lobar pneumonia, unspecified organism Is this a current diagnosis for this admission?: Yes (3) Urinary tract infection Qualifiers: Urinary tract infection type: site unspecified Hematuria presence: without hematuria Qualified Code(s): N39.0 - Urinary tract infection, site not specified Is this a current diagnosis for this admission?: Yes (4) Acute renal failure Qualifiers: Acute renal failure type: unspecified Qualified Code(s): N17.9 - Acute kidney failure, unspecified Is this a current diagnosis for this admission?: Yes (5) Depression Qualifiers: Depression Type: unspecified Qualified Code(s): F32.9 - Major depressive disorder, single episode, unspecified Is this a current diagnosis for this admission?: Yes (6) Diabetes mellitus Qualifiers: Diabetes mellitus type: type 2 Diabetes mellitus complication status: with unspecified complications 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 Qualified Code(s): E11.8 - Type 2 diabetes mellitus with unspecified complications; Z79.4 - [facility] (current) use of insulin Is this a current diagnosis for this admission?: Yes (7) Hypertension Qualifiers: Hypertension type: essential hypertension Qualified Code(s): I10 - Essential (primary) hypertension Is this a current diagnosis for this admission?: Yes (8) Lewy body dementia with behavioral disturbance Is this a current diagnosis for this admission?: Yes (9) Hyperlipidemia Qualifiers: Hyperlipidemia type: unspecified Qualified Code(s): E78.5 - Hyperlipidemia, unspecified Is this a current diagnosis for this admission?: Yes - Time Time Spent with patient: 25-34 minutes - Plan Summary Plan Summary: Patient's urine culture seems to be growing enterococcus but not VRE. Awaiting sensitivities however. We will continue the vancomycin. Discontinue clindamycin and ceftriaxone and begin Levaquin orally for the pneumonia. Decrease intravenous fluids. Plan on transferring back to the [facility] unit in the morning.
[2017-03-29] MEDS: ENOXAPARIN SODIUM INJ 40 MG/0.4 ML DISP.SYRIN SUBCUT SCH (10:05)
[2017-03-29] MEDS: LOSARTAN POTASSIUM 50 MG TABLET PO SCH (10:06)
[2017-03-29] MEDS: DIVALPROEX SODIUM 250 MG TABLET.DR PO SCH (10:06)
[2017-03-29] MEDS: SERTRALINE HCL 50 MG TABLET PO SCH (10:07)
[2017-03-29] MEDS: FAMOTIDINE 20 MG TABLET PO SCH ×2 (10:08→22:04)
[2017-03-29] MEDS: ASPIRIN 325 MG TABLET, ENT COATED PO SCH (10:09)
[2017-03-29] MEDS: LEVOFLOXACIN 750 MG TABLET PO SCH (10:14)
[2017-03-29] MEDS ORDERED: ONDANSETRON HCL INJ/PF 4 MG/2 ML SDV IV PRN (14:13)
[2017-03-29] MEDS: VANCOMYCIN HCL 1,250 MG in DEXTROSE 5%-WATER 250 ML IV SCH (16:40)
[2017-03-29] MEDS ORDERED: ASPIRIN 325 MG TABLET PO SCH (18:00)
[2017-03-29] MEDS ORDERED: DIVALPROEX SODIUM 125 MG CAP.SPRINK PO ONE (19:00)
[2017-03-29] MEDS: MIRTAZAPINE 15 MG TABLET PO SCH (22:04)
[2017-03-29] MEDS: TRAZODONE HCL 50 MG TABLET PO SCH (22:04)
[2017-03-29] MEDS: INSULIN GLARGINE,HUM.REC.ANLOG 300 UNIT/3 ML INSULN.PEN SUBCUT SCH (22:07)
[2017-03-30] MEDS: LEVOFLOXACIN 750 MG TABLET PO SCH (09:37)
[2017-03-30] MEDS: FAMOTIDINE 20 MG TABLET PO SCH (09:37)
[2017-03-30] MEDS: ENOXAPARIN SODIUM INJ 40 MG/0.4 ML DISP.SYRIN SUBCUT SCH (09:37)
[2017-03-30] MEDS: LOSARTAN POTASSIUM 50 MG TABLET PO SCH (09:37)
[2017-03-30] MEDS: SERTRALINE HCL 50 MG TABLET PO SCH (09:37)
[2017-03-30] MEDS ORDERED: DIVALPROEX SODIUM 125 MG CAP.SPRINK PO SCH (10:00)
--- NOTE | 2017-03-30 10:53 | PDOC DISCHARGE SUMMARY ---
General - Admit/Disc Date/PCP Admission Date/Primary Care Provider: 03/26/17 11:15 Discharge Date: 03/30/17 - Discharge Diagnosis (1) Syncope Is this a current diagnosis for this admission?: Yes (2) Pneumonia Is this a current diagnosis for this admission?: Yes (3) Urinary tract infection Is this a current diagnosis for this admission?: Yes (4) Acute renal failure Is this a current diagnosis for this admission?: Yes (5) Depression Is this a current diagnosis for this admission?: Yes (6) Diabetes mellitus Is this a current diagnosis for this admission?: Yes (7) Hypertension Is this a current diagnosis for this admission?: Yes (8) Lewy body dementia with behavioral disturbance Is this a current diagnosis for this admission?: Yes (9) Hyperlipidemia Is this a current diagnosis for this admission?: Yes - Additional Information Resuscitation Status: Do Not Resuscitate Discharge Diet: Cardiac, Diabetic - No concentrated sweets Discharge Activity: Activity As Tolerated, Balance Activity w/Rest Home Medications: Acetaminophen [Tylenol 325 mg Tablet] 650 mg PO Q4HP PRN 03/26/17 Aspirin [Ecotrin 325 mg EC Tablet] 325 mg PO DAILY 03/26/17 Cold Cream/Zinc Oxide/Star/Soern [Dermacloud Ointment] 1 applic TP PRN PRN Divalproex Sodium [Divalproex Sodium ER] 500 mg PO Q12 03/26/17 Guaifenesin [Robafen] 200 mg PO Q4HP PRN 03/26/17 Insulin Glargine,Hum.rec.anlog [Lantus Insulin 100 Unit/mL] 25 unit SQ QHS 03/26 Insulin Lispro [Humalog Kwikpen U-100] 0 unit SQ ASDIR PRN 03/26/17 Losartan Potassium [Cozaar 50 mg Tablet] 50 mg PO DAILY 03/26/17 Magnesium Hydroxide [Milk of Magnesia] 30 ml PO DAILYP PRN 03/26/17 Mirtazapine [Remeron] 30 mg PO QHS 03/26/17 Multivitamin/Iron/Folic Acid [Centrum Complete Multivit Tab] 1 tab PO DAILY Neomycin Perez/Bacitrac Zn/Poly [Triple Antibiotic Ointment] 1 applic TP PRN PRN Pioglitazone HCl [Actos] 45 mg PO DAILY 03/26/17 Polyethylene Glycol 3350 [Miralax Powder 17 gm/Packet] 17 gm PO DAILYP PRN 03/26 Sertraline HCl [Zoloft 50 mg Tablet] 50 mg PO DAILY 03/26/17 Amox Tr/Potassium Clavulanate [Augmentin 875-125 mg Tablet] 1 tab PO BID #14 tablet 03/30/17 Trazodone HCl [Desyrel 50 mg Tablet] 25 mg PO QHS #30 tablet 03/30/17 Additional Information: Antibiotic to take for 1 week History of Present Illness Patient complains of: Syncope History of Present Illness: BRIELLE CASTLE is a 77 year old male, with underlying dementia who resides in the Alzheimer's unit apparently became unresponsive after eating breakfast. There was a question of tonic-clonic activity and therefore the patient was brought to the emergency room. The patient was reportedly without prior history of seizure. He was found to have urinary tract infection and possible infiltrate of the chest x-ray. Patient was started on antibiotics and was referred on for admission. He is on Depakote as reported but taking for mood according to the family. For details please refer to history and physical examination performed by the admitting physician. Hospital Course Hospital Course: The patient was admitted to telemetry floor. The patient was hydrated and broad -spectrum antibiotic was started to cover for pneumonia and urinary tract infection. Patient developed gram-positive cocci on urine culture and vancomycin was started. Patient was also placed on supplemental oxygen. While in the [place] there is no noted seizure activity. No noted temperature spikes or any discomfort no diarrhea. Blood cultures remain negative. Urine culture grew enterococcus but sensitive to oral antibiotics as reported by the micro laboratory. The patient was therefore shifted to oral antibiotics. The patient improved. No noted syncopal episode was noted. He was resumed on his trazodone but half the dose as well as his Remeron for half the dose. The rest of the hospital stays unremarkable. Physical Exam Vital Signs: Temp Pulse Resp BP Pulse Ox 97.9 F 62 19 145/66 H 94 03/30/17 04:00 03/30/17 07:00 03/30/17 04:00 03/30/17 04:00 03/30/17 04:00 Intake & Output 03/29/17 03/30/17 03/31/17 06:59 06:59 06:59 Intake Total 1030 2469 Balance 1030 2469 Weight 68.5 kg 68.5 kg General appearance: PRESENT: no acute distress, other - Occasionally responds to questions appropriately Head exam: PRESENT: normocephalic Eye exam: PRESENT: EOMI Mouth exam: PRESENT: moist, neck supple Neck exam: ABSENT: JVD Respiratory exam: PRESENT: clear to auscultation anusha - Poor effort however. ABSENT: rhonchi, wheezes Cardiovascular exam: PRESENT: RRR. ABSENT: gallop GI/Abdominal exam: PRESENT: hypoactive bowel sounds, soft. ABSENT: distended, tenderness Extremities exam: ABSENT: pedal edema Neurological exam: PRESENT: alert, awake Skin exam: PRESENT: dry, warm. ABSENT: cyanosis Results Laboratory Results: 03/27/17 04:16 03/29/17 04:09 Impressions: Chest X-Ray 03/26/17 06:32 IMPRESSION: NEW RIGHT LOWER LOBE AIRSPACE DISEASE MAY REPRESENT SUBSEGMENTAL ATELECTASIS, ASPIRATION, OR DEVELOPING PNEUMONIA. Head CT 03/26/17 06:33 IMPRESSION: NO ACUTE INTRACRANIAL PROCESS. NO SIGNIFICANT CHANGE FROM PRIOR STUDY. Qualifiers PATEINT BEING DISCHARGED WITH ANY OF THE FOLLOWING DIAGNOSIS?: No Plan Discharge Plan: Follow-up with primary care physician in 1 week. Time Spent: Less than 30 Minutes
[2017-03-30 12:29] VITALS: BP 111/76
== END 2017-03-30 13:57 | disposition home health service (06) | DRG 194 ==
LOC: ER 06:07 → EH 11:15 → UNDOADMIN 11:28 → 3N 15:23
PROVIDERS: ADMIT Internal Medicine; ATTEND Internal Medicine
PROC: 3E0F73Z Introduction of Anti-inflammatory into Respiratory Tract, Via Natural or Artificial Opening (ICD-10-PCS; principal; 2017-03-26)
DX: J18.1 Lobar pneumonia, unspecified organism (principal); N39.0 Urinary tract infection, site not specified; N17.9 Acute kidney failure, unspecified; F02.81 Dementia in other diseases classified elsewhere, unspecified severity, with behavioral disturbance; F32.9 Major depressive disorder, single episode, unspecified; E11.9 Type 2 diabetes mellitus without complications; I10 Essential (primary) hypertension; G31.83 Neurocognitive disorder with Lewy bodies; G30.8 Other Alzheimer's disease; E78.5 Hyperlipidemia, unspecified; B95.2 Enterococcus as the cause of diseases classified elsewhere; E78.00 Pure hypercholesterolemia, unspecified; G40.409 Other generalized epilepsy and epileptic syndromes, not intractable, without status epilepticus; Z66 Do not resuscitate; Z79.82 Long term (current) use of aspirin; Z79.4 Long term (current) use of insulin; Z79.899 Other long term (current) drug therapy
CPT/HCPCS: 36415; 51701; 70450; 71010; 80048; 80053; 80164; 81001; 82962; 83880; 85025; 87040; 87086; 87088; 87186; 99291; G8978-GP; G8979-GP; J0696; J1650; J1815; J2543; J3360; J3370; J3490; J7030; J7060